=== PATIENT | female | born 1990 | race Caucasian/White ===

== ENCOUNTER 2017-03-22 18:57 | Emergency (ER) | payer OTHER ==
--- NOTE | ~2017-03-22 | ER ---
PATIENT'S NAME: MURALI BUSBY [facility] AGE: 27 Y [address] ROOM: [place] [address] LOCATION: ED ADMIT DATE: 03/22/2017 ER/Outpatient Report DISCHARGE DATE: 03/22/2017 FAMILY PHYSICIAN: Christian Nelson MD ATTENDING PHYSICIAN: Miley Carrion Time of Arrival: 1857 hours. Time Seen: 1910 hours. IDENTIFICATION: A 27-year-old female. CHIEF COMPLAINT: Cellulitis on abdomen with flareup. HISTORY OF PRESENT ILLNESS: The patient is a 27-year-old female who was seen in the clinic by Dr. Nelson, treated with Bactrim for an abdominal wall cellulitis. She finished her last pill today, but now today has had increasing pain just below her pannus with what she thought was increasing redness. 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 The patient has no nausea or vomiting, no diarrhea, no constipation. She says she has had fever at home, no fever here. 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 ALLERGIES: NO KNOWN DRUG ALLERGIES. CURRENT MEDICATIONS: 1. Bactrim. 2. Lexapro. 3. Synthroid. MEDICAL PROBLEMS: Hypothyroidism, history of MRSA, and abdominal wall cellulitis. PRIOR SURGERIES: Denies. REVIEW OF SYSTEMS: All systems reviewed and negative other than what is noted in the HPI. PATIENT'S NAME: MURALI BUSBY [facility] AGE: 27 Y [address] ROOM: [place] [address] LOCATION: [facility] ADMIT DATE: 03/22/2017 ER/Outpatient Report DISCHARGE DATE: 03/22/2017 FAMILY PHYSICIAN: Christian Nelson MD ATTENDING PHYSICIAN: Mliey Carrion SOCIAL HISTORY: The patient smokes 3 cigarettes a week. Alcohol, social. Drug use, denies. 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 She lives here in [place] with her mother. FAMILY HISTORY: No pertinent family history. PHYSICAL EXAMINATION: VITAL SIGNS: Height 5 feet 9 inches and weight 241.3 kg. Blood pressure 189/95, pulse 111, respirations 18, temperature 98.4, and saturations 97%. GENERAL: A 27-year-old morbidly obese female, in no acute distress. HEENT: Unremarkable. LUNGS: Clear to auscultation. HEART: Regular rate and rhythm. ABDOMEN: Bowel sounds present. Soft, nondistended. No hepatosplenomegaly. No palpable masses. She is tender to palpation along the pannus along her lower abdomen. There is a mild amount of erythema, very minimal in a reticular pattern, light pink, but exquisitely tender to palpation. No vesicular lesions. No palpable abscess. She does have quite a bit of abdominal pain. DIAGNOSTIC DATA: We recommended a CT scan; however, she is above the weight limit for the CT scan. Her procalcitonin less than 0.05. UA unremarkable. Urine hCG, negative. Sodium 141, potassium 4, chloride 106, CO2 23, BUN 19, creatinine 1.1, and blood sugar 89. Liver enzymes normal. Amylase 29, lipase 96. Hemoglobin 11.7, hematocrit 38.3. Microcytic indices: White count 9.6 with a normal differential. Lactate 2.2. Recheck pulse is 85, blood pressure 134/71, and the patient remains afebrile at 97.9. PLAN: We did have a long discussion although the rash itself does not look real suspicious for cellulitis with her history and she said this is how things were last year, we did go ahead and cover her with clindamycin 600 mg IV here in the ER, clindamycin 300 mg p.o. 4 times daily, no work for 2 days, Tylenol or Advil for pain, and follow up in the clinic with Dr. Nelson in 1 day, follow up sooner if any problems or concerns. The patient and her mother understand and agree, and all questions have been answered. MILEY CARRION MD CAR/modl PATIENT'S NAME: MURALI BUSBY [facility] AGE: 27 Y [address] ROOM: [place], [place] [address] LOCATION: [facility] ADMIT DATE: 03/22/2017 ER/Outpatient Report DISCHARGE DATE: 03/22/2017 FAMILY PHYSICIAN: Christian Nelson MD ATTENDING PHYSICIAN: Miley Carrion /[id number] d: 03/23/17 0151 t: 03/24/17 0344, OUTPATIENT REPORT
[~2017-03-22 18:57] MED LIST: ADVIL200 MG PO; BACTRIM DS1 TAB PO; CLINDAMYCIN HC300 MG PO; NORCO 10-325 T1 EACH PO
[2017-03-22 19:51] LABS: BASOPHIL # 0.1 K/uL (0.0-0.2); BASOPHIL % 0.7 %; EOSINOPHIL # 0.1 K/uL (0.0-0.5); EOSINOPHIL % 0.8 %; HEMATOCRIT 38.3 % (33.0-46.0); HEMOGLOBIN 11.7 g/dL (11.0-15.0); IMMATURE GRANULOCYTE % 0.3 %; LYMPHOCYTE # 3.1 K/uL (0.8-4.0); LYMPHOCYTE % 32.1 %; MCH 22.4 pg (27.0-34.0); MCHC 30.5 gm/dL (32.0-36.5); MCV 73.2 fl (83.0-98.0); MONOCYTE # 0.8 K/uL (0.0-1.0); MONOCYTE % 8.3 %; MPV 10.6 fl (9.4-12.4); NEUTROPHIL # (ANC) 5.6 K/uL (1.8-7.8); NEUTROPHIL % 57.8 %; NRBC % 0 /100WBC (0-0.00); PLATELET COUNT 421 K/uL (150-450); RBC 5.23 M/uL (3.50-5.00); RDW-CV 17.4 % (11.9-14.6); WBC 9.6 K/uL (4.0-11.0)
[2017-03-22 20:05] LABS: BILIRUBIN URINE NEGATIVE (NEGATIVE); BLOOD URINE 10 /UL (NEGATIVE); GLUCOSE URINE NEGATIVE (NEGATIVE); KETONE URINE 5 mg/dL (NEGATIVE); LEUKOCYTES URINE 25 /UL (NEGATIVE); NITRITE URINE NEGATIVE (NEGATIVE); PROTEIN URINE 15 mg/dL (NEGATIVE); SPEC GRAVITY URINE 1.025 (1.003-1.035); UROBILINOGEN URINE 1 mg/dL (NORMAL)
[2017-03-22 20:12] LABS: ALBUMIN 3.8 gm/dL (3.5-5.0); CALCIUM 9.1 mg/dL (8.5-10.5); CREATININE 1.1 mg/dL (0.5-1.1); TOTAL BILIRUBIN 0.3 mg/dL (0.0-1.5)
[2017-03-22 20:17] LABS: COLOR URINE YELLOW (YELLOW); TURBIDITY URINE 1+ (CLEAR)
[2017-03-22 20:42] LABS: WBC URINE 0-2 #/HPF (NEGATIVE)
[2017-03-22 20:43] LABS: AMORPHOUS URINE 1+ (NEGATIVE); BACTERIA URINE NEGATIVE (NEGATIVE); RBC URINE NEGATIVE #/HPF (NEGATIVE)
== END 2017-03-22 22:35 | disposition disaster alternative care site (69) ==
LOC: GMED 18:57
PROVIDERS: Family Medicine
DX: R21 Rash and other nonspecific skin eruption (principal); E03.9 Hypothyroidism, unspecified; F17.210 Nicotine dependence, cigarettes, uncomplicated; Z79.899 Other long term (current) drug therapy